=== PATIENT | male | born 1950 | race Caucasian/White ===

== ENCOUNTER 2024-03-10 09:26 | Outpatient (CLI) | payer MEDICARE, OTHER ==
[2024-03-10] MEDS ORDERED: iohexol 300mg/ml 100ml inj. ONE (09:40)
== END 2024-03-10 23:59 | disposition home or self-care (01) ==
LOC: RAD 09:26
PROVIDERS: ATTEND Nurse Practitioner Family
DX: K57.30 Diverticulosis of large intestine without perforation or abscess without bleeding (principal); K44.9 Diaphragmatic hernia without obstruction or gangrene; K76.89 Other specified diseases of liver; D73.89 Other diseases of spleen; R10.9 Unspecified abdominal pain
CPT/HCPCS: 74178; Q9967